=== PATIENT | male | born 1985 | race African-American/Black ===

== ENCOUNTER 2019-09-10 22:59 | Emergency (ER) | payer SELFPAY ==
[~2019-09-10] VITALS: Ht 170.2 cm; Wt 63.5 kg
[~2019-09-10 22:59] MED LIST: OMEP20TA8 PO
[2019-09-10 23:18] VITALS: BP 140/99
--- NOTE | 2019-09-10 23:43 | PHYS DOC ---
Past Medical History Past Medical History: No Pertinent History (ARTEM BRAR APRN) Additional Past Surgical Histo: "NEPHRECTOMY", PIN AND PLATE IN HIP AND ANKLE, UNKNOW WHICH SIDE (ARTEM BRAR APRN) Alcohol Use: Heavy Drug Use: None (ARTEM BRAR APRN) Attending Signature I have participated in the care of this patient and I have reviewed and agree with all pertinent clinical information above including history, exam, and recommendations. (RITA SPRAGUE MD) Adult General Chief Complaint Chief Complaint: DENTAL PROBLEM HPI HPI Patient is a 33 year old AA male who presents to the emergency department with complaints of right lower dental pain and facial swelling for the last day. Patient states that yesterday he started to notice that his tooth was a little sore. Patient denies any fever, nausea, vomiting, shortness of breath, difficulty swallowing, wheezing, or rash. He currently rates his pain a 10 out of 10 on the pain scale, he denies any alleviating factors. All other ROS is neg unless otherwise noted in HPI. (ARTEM BRAR APRN) Review of Systems Review of Systems See Above (ARTEM BRAR APRN) Allergies Allergies Allergies Coded Allergies Type Severity Reaction Last Updated Verified No Known Drug Allergies 07/03/18 No (RITA SPRAGUE MD) Physical Exam Physical Exam See Above Constitutional: Well developed, well nourished, no acute distress, non-toxic appearance. [] HENT: Normocephalic, atraumatic, bilateral external ears normal, oropharynx moist, no oral exudates, nose normal; substantial gingivitis present in lower le ft quadrant with large amount of gingival erythema and edema, no visible abscess or pustule, diffuse dental decay noted in the lower left quadrant multiple caries. Eyes: PERRLA, EOMI, conjunctiva normal, no discharge. [] Neck: Normal range of motion, no tenderness, supple, no stridor. [] Cardiovascular:Heart rate regular rhythm Lungs & Thorax: Respirations even and unlabored, no retractions, no respiratory distress Skin: Warm, dry, no erythema, no rash. [] Back: No tenderness Extremities: No cyanosis, ROM intact Neurologic: Alert and oriented X 3, no focal deficits noted. [] Psychologic: Affect normal, judgement normal, mood normal. [] (ARTEM BRAR APRN) Current Patient Data Vital Signs Vital Signs Date Time Temp Pulse Resp B/P (MAP) Pulse Ox O2 Delivery O2 Flow Rate FiO2 09/10/19 23:18 98.3 73 16 140/99 (113) 96 Room Air 98.3 (RITA SPRAGUE MD) EKG EKG [] (ARTEM BRAR APRN) Radiology/Procedures Radiology/Procedures [] (ARTEM BRAR APRN) Course & Med Decision Making Course & Med Decision Making Pertinent Labs and Imaging studies reviewed. (See chart for details) [] (ARTEM BRAR APRN) Dragon Disclaimer Dragon Disclaimer This electronic medical record was generated, in whole or in part, using a voice recognition dictation system. (ARTEM BRAR APRN) Departure Departure Impression: Primary Impression: Infected dental caries Additional Impressions: Dentalgia Gingivitis, acute, plaque induced Disposition: 01 HOME, SELF-CARE Condition: STABLE Referrals: NO PCP (PCP) Patient Instructions: Dental Abscess, Dental Caries, Gingivitis, [id number] Additional Instructions: Fill prescription(s) and use as directed. Follow up with dentist using the referral list provided. Return to the ER if symptoms worsen. Scripts Naproxen (NAPROXEN) 500 Mg Tablet 1 TAB PO BID PRN for PAIN for 10 Days, #20 TAB 0 Refills Prov: ARTEM BRAR APRN 09/10/19 Chlorhexidine Gluconate (PERIDEX) 15 Ml Mouthwash 15 ML SWSP BID for 7 Days, #473 ML 0 Refills [place] teeth before using to prevent staining. Swish for approximately 30 seconds before spitting. Prov: ARTEM BRAR APRN 09/10/19 Penicillin V Potassium (PENICILLIN V POTASSIUM) 500 Mg Tablet 1 TAB PO QID for 10 Days, #40 TAB 0 Refills Prov: ARTEM BARR APRN 09/10/19 Problem Qualifiers ARTEM BRAR APRN Sep 10, 2019 23:43 RITA SPRAGUE MD Sep 14, 2019 02:07
[2019-09-10] MEDS ORDERED: CHLO15MO2 SWSP (23:52)
[2019-09-10] MEDS ORDERED: NAPR-514 PO (23:52)
[2019-09-10] MEDS ORDERED: PENI500T PO (23:52)
== END 2019-09-11 00:03 | disposition home or self-care (01) ==
LOC: ER 22:59
DX: K04.7 Periapical abscess without sinus (principal); K05.10 Chronic gingivitis, plaque induced; F10.20 Alcohol dependence, uncomplicated; Y90.9 Presence of alcohol in blood, level not specified
CPT/HCPCS: 99283

== ENCOUNTER 2019-12-18 19:50 | Emergency (ER) | payer SELFPAY ==
[~2019-12-18] VITALS: Ht 175.3 cm; Wt 68.0 kg
[~2019-12-18 19:50] MED LIST changes: +CHLO15MO2 SWSP; +NAPR-514 PO; +PENI500T PO
[2019-12-18] MEDS ORDERED: IV NORMAL SALINE 1000ML BAG 1,000 ML IV ONE (20:15)
--- NOTE | 2019-12-18 20:28 | PHYS DOC ---
Past Medical History Past Medical History: Other Additional Past Medical Histor: gastric ulcers Past Surgical History: Other Additional Past Surgical Histo: "NEPHRECTOMY", PIN AND PLATE IN HIP AND ANKLE, Ulcer surgery Smoking Status: Current Every Day Smoker Alcohol Use: Heavy Drug Use: None Adult General Chief Complaint Chief Complaint: BLOODY STOOL HPI HPI Patient is a 33 year old male who presents with yesterday had a large black stool without clots and today had a large black stool without clots. Patient has a history of gastric ulcers. States he drinks very heavy on the weekends. Yesterday he had a pint Pat[place]. Patient denies any abdominal pain. He states he was slightly nauseated but nothing came up today. When patient educated that if he has gastric ulcers he should not be drinking alcohol he states "Well how am I suppose to have fun?" Review of Systems Review of Systems GI: Denies abdominal pain, nausea, vomiting. +bloody stools or denies diarrhea [] All other systems were reviewed and found to be within normal limits, except as documented in this note. Current Medications Current Medications Current Medications Medications (Trade) Dose Ordered Sig/Briana Start Time Stop Time Status Last Admin Dose Admin Info (CONTRAST GIVEN -- Rx MONITORING) 1 each PRN DAILY PRN 12/18/19 21:15 12/20/19 21:14 Iohexol (Omnipaque 300 Mg/ml) 75 ml 1X ONCE 12/18/19 21:30 12/18/19 21:31 DC 12/18/19 21:25 75 ML Pantoprazole Sodium (PROTONIX VIAL for IV PUSH) 40 mg 1X ONCE 12/18/19 20:30 12/18/19 20:31 DC 12/18/19 20:38 40 MG Sodium Chloride 1,000 ml @ 1,000 mls/hr 1X ONCE 12/18/19 20:15 12/18/19 21:14 DC 12/18/19 20:38 1,000 MLS/HR Allergies Allergies Allergies Coded Allergies Type Severity Reaction Last Updated Verified No Known Drug Allergies 07/03/18 No Physical Exam Physical Exam Constitutional: Well developed, well nourished, no acute distress, non-toxic appearance. [] HENT: Normocephalic, atraumatic, bilateral external ears normal, oropharynx moist, no oral exudates, nose normal. [] Eyes: PERRLA, EOMI, conjunctiva normal, no discharge. [] Neck: Normal range of motion, no tenderness, supple, no stridor. [] Cardiovascular:Heart rate regular rhythm, no murmur [] Lungs & Thorax: Bilateral breath sounds clear to auscultation [] Abdomen: Bowel sounds normal, soft, no tenderness, no masses, no pulsatile masses. [] Skin: Warm, dry, no erythema, no rash. [] Back: No tenderness, no CVA tenderness. [] Extremities: No tenderness, no cyanosis, no clubbing, ROM intact, no edema. [] Neurologic: Alert and oriented X 3, normal motor function, normal sensory function, no focal deficits noted. [] Psychologic: Affect normal, judgement normal, mood normal. [] Normal Physical exam Current Patient Data Vital Signs Vital Signs Date Time Temp Pulse Resp B/P (MAP) Pulse Ox O2 Delivery O2 Flow Rate FiO2 12/18/19 20:42 92 16 111/68 (82) 96 Room Air 12/18/19 20:00 98.3 98.3 Lab Values Laboratory Tests Test 12/18/19 20:20 12/18/19 20:33 Stool Occult Blood Negative (NEG) White Blood Count 8.2 x10^3/uL (4.0-11.0) Red Blood Count 5.11 x10^6/uL (4.30-5.70) Hemoglobin 16.1 g/dL (13.0-17.5) Hematocrit 46.1 % (39.0-53.0) Mean Corpuscular Volume 90 fL (79-100) Mean Corpuscular Hemoglobin 32 pg (25-35) Mean Corpuscular Hemoglobin Concent 35 g/dL (31-37) Red Cell Distribution Width 12.9 % (11.5-14.5) Platelet Count 243 x10^3/uL (140-400) Neutrophils (%) (Auto) 53 % (31-73) Lymphocytes (%) (Auto) 36 % (24-48) Monocytes (%) (Auto) 9 % (0-9) Eosinophils (%) (Auto) 2 % (0-3) Basophils (%) (Auto) 1 % (0-3) Neutrophils # (Auto) 4.3 x10^3/uL (1.8-7.7) Lymphocytes # (Auto) 2.9 x10^3/uL (1.0-4.8) Monocytes # (Auto) 0.7 x10^3/uL (0.0-1.1) Eosinophils # (Auto) 0.2 x10^3/uL (0.0-0.7) Basophils # (Auto) 0.1 x10^3/uL (0.0-0.2) Prothrombin Time 12.7 SEC (11.7-14.0) Prothrombin Time INR 1.0 (0.8-1.1) Sodium Level 145 mmol/L (136-145) Potassium Level 3.9 mmol/L (3.5-5.1) Chloride Level 106 mmol/L (98-107) Carbon Dioxide Level 26 mmol/L (21-32) Anion Gap 13 (6-14) Blood Urea Nitrogen 9 mg/dL (8-26) Creatinine 1.4 mg/dL (0.7-1.3) H Estimated GFR (Cockcroft-Gault) 71.1 BUN/Creatinine Ratio 6 (6-20) Glucose Level 95 mg/dL (70-99) Calcium Level 8.4 mg/dL (8.5-10.1) L Total Bilirubin 0.2 mg/dL (0.2-1.0) Aspartate Amino Transferase (AST) 34 U/L (15-37) Alanine Aminotransferase (ALT) 29 U/L (16-63) Alkaline Phosphatase 74 U/L (46-116) Total Protein 7.7 g/dL (6.4-8.2) Albumin 3.9 g/dL (3.4-5.0) Albumin/Globulin Ratio 1.0 (1.0-1.7) Ethyl Alcohol Level 213 mg/dL (0-10) H Laboratory Tests 12/18/19 20:33 Laboratory Tests 12/18/19 20:33 EKG EKG [] Radiology/Procedures Radiology/Procedures [] Impressions: [facility] [address] [place] [address] IMAGING REPORT Signed PATIENT: IVA RUBIO WACCOUNT: [id number] : 1985 LOCATION: ER AGE: 33 SEX: M EXAM STATUS: REG ER ORD. PHYSICIAN: BANDAR LAMBERT APRN REASON: BLACK STOOL, OMNI 300, 75 ML PROCEDURE: CT ABD PELV W/ IV CONTRST ONLY Exam: CT of abdomen and pelvis with contrast INDICATION: Black stool TECHNIQUE: Sequential axial images through the abdomen and pelvis obtained following the administration of 75 mL of Omni 300 IV contrast. Sagittal and coronal reformatted images were reconstructed from the axial data and reviewed. Comparisons: 07/03/2018 FINDINGS: Heart size is normal. No pericardial effusion. Visualized lung bases are clear. No pleural effusion. Liver, spleen, pancreas, gallbladder and adrenals are unremarkable. Kidneys a straight symmetric enhancement. No perinephric inflammation or hydronephrosis. No renal or ureteral calculi are identified. Bladder is decompressed not well evaluated. Prostate is not enlarged. Large and small bowel are unremarkable. Appendix is not identified. No free abdominal air or fluid. No obstruction. Abdominal aorta has a normal course and caliber. Abdominal vasculature is patent. No enlarged abdominal lymph nodes are identified. No suspicious osseous lesions or acute fractures. IMPRESSION: No acute process identified within the abdomen or pelvis. Exposure: One or more of the following in the visualized dose reduction techniques were utilized for this examination: 1. Automated exposure control 2. Adjustment of the MA and/or KV according to patient size 3. Use of iterative of reconstructive technique Electronically signed by: Catarina Benavidez MD (12/18/2019 9:43 PM) [id number] DICTATED and SIGNED BY: CATARINA BENAVIDEZ MD DATE: 12/18/19 2143 Course & Med Decision Making Course & Med Decision Making Pertinent Labs and Imaging studies reviewed. (See chart for details) Abdomen soft and nontender. Alert and oriented. Speaks in full clear sentences. Skin pink warm and dry. Vital signs within normal limits. No blood seen upon rectal exam. Ambulatory with a steady gait. Patient denies shortness of air, chest pain, abdominal pain, nausea, vomiting, diarrhea, fever, back pain, dizziness, headache, visual changes, numbness or tingling, weakness. Blood work unremarkable. CT abdomen pelvis unremarkable. Patient follow-up with GI doctor and is educated stop drinking alcohol. Rectal Exam: Normal tone, No mass, Positive control Stool: Brown Guaiac: Negative [] Dragon Disclaimer Dragon Disclaimer This electronic medical record was generated, in whole or in part, using a voice recognition dictation system. Departure Departure Impression: Primary Impression: Black stools Disposition: HOME, SELF-CARE Condition: STABLE Referrals: NO PCP (PCP) JUANA SHIRLEY MD Patient Instructions: Bloody Stools Additional Instructions: Follow-up with GI doctor. Stop drinking alcohol. Take medication as prescribed. Drink plenty of fluids. Scripts Omeprazole (OMEPRAZOLE) 40 Mg Capsule.dr 1 CAP PO DAILY, #30 CAP 3 Refills Prov: BANDAR LAMBERT APRN 12/18/19 BANDAR LAMBERT APRN Dec 18, 2019 20:28
[2019-12-18] MEDS ORDERED: PANTOPRAZOLE IV PUSH 40 MG VIAL. IVP ONE (20:30)
[2019-12-18 20:41] LABS: FECAL OB PT NEGATIVE (NEG)
[2019-12-18 20:44] LABS: BASO # 0.1 x10^3/uL (0.0-0.2); BASO % 1 % (0-3); EOS # 0.2 x10^3/uL (0.0-0.7); EOS % 2 % (0-3); HEMATOCRIT 46.1 % (39.0-53.0); HEMOGLOBIN 16.1 g/dL (13.0-17.5); LYMPH # 2.9 x10^3/uL (1.0-4.8); LYMPH % 36 % (24-48); MEAN CORPUSCULAR HEMOGLOBIN 32 pg (25-35); MEAN CORPUSCULAR HGB CONC 35 g/dL (31-37); MEAN CORPUSCULAR VOLUME 90 fL (79-100); MONO # 0.7 x10^3/uL (0.0-1.1); MONO % 9 % (0-9); NEUT # 4.3 x10^3/uL (1.8-7.7); NEUT % 53 % (31-73); PLATELET COUNT 243 x10^3/uL (140-400); RED BLOOD COUNT 5.11 x10^6/uL (4.30-5.70); RED CELL DISTRIBUTION WIDTH 12.9 % (11.5-14.5); WHITE BLOOD COUNT 8.2 x10^3/uL (4.0-11.0)
[2019-12-18 20:52] LABS: CALCIUM 8.4 mg/dL (8.5-10.1); CREATININE 1.4 mg/dL (0.7-1.3); GFR 71.1; POTASSIUM 3.9 mmol/L (3.5-5.1); PROTHROMBIN TIME PATIENT 12.7 SEC (11.7-14.0)
[2019-12-18 20:58] LABS: ALBUMIN 3.9 g/dL (3.4-5.0); TOTAL BILIRUBIN 0.2 mg/dL (0.2-1.0); TOTAL PROTEIN 7.7 g/dL (6.4-8.2)
[2019-12-18] MEDS ORDERED: CONTRAST GIVEN. MC PRN (21:15)
[2019-12-18 21:30] VITALS: BP 115/74
[2019-12-18] MEDS ORDERED: IOHEXOL 300 MG/ML 100ML VIAL. IV ONE (21:30)
--- NOTE | 2019-12-18 21:46 | RAD ---
Exam: CT of abdomen and pelvis with contrast INDICATION: Black stool TECHNIQUE: Sequential axial images through the abdomen and pelvis obtained following the administration of 75 mL of Omni 300 IV contrast. Sagittal and coronal reformatted images were reconstructed from the axial data and reviewed. Comparisons: 07/03/2018 FINDINGS: Heart size is normal. No pericardial effusion. Visualized lung bases are clear. No pleural effusion. Liver, spleen, pancreas, gallbladder and adrenals are unremarkable. Kidneys a straight symmetric enhancement. No perinephric inflammation or hydronephrosis. No renal or ureteral calculi are identified. Bladder is decompressed not well evaluated. Prostate is not enlarged. Large and small bowel are unremarkable. Appendix is not identified. No free abdominal air or fluid. No obstruction. Abdominal aorta has a normal course and caliber. Abdominal vasculature is patent. No enlarged abdominal lymph nodes are identified. No suspicious osseous lesions or acute fractures. IMPRESSION: No acute process identified within the abdomen or pelvis. Exposure: One or more of the following in the visualized dose reduction techniques were utilized for this examination: 1. Automated exposure control 2. Adjustment of the MA and/or KV according to patient size 3. Use of iterative of reconstructive technique Electronically signed by: Catarina Walton MD (12/18/2019 9:43 PM) [id number]
[2019-12-18] MEDS ORDERED: OMEP40CA45 PO (21:58)
== END 2019-12-18 22:18 | disposition home or self-care (01) ==
LOC: ER 19:50
DX: R19.5 Other fecal abnormalities (principal); R11.0 Nausea; F10.10 Alcohol abuse, uncomplicated; F17.200 Nicotine dependence, unspecified, uncomplicated; Z98.890 Other specified postprocedural states
CPT/HCPCS: 36415; 74177; 80053; 82274; 85025; 85610; 96374; 99285; C9113; G0480; J7030; Q9967